=== PATIENT | female | born 1955 | race Caucasian/White ===

== ENCOUNTER 2021-12-31 18:13 | Emergency (ER) | payer OTHER ==
[2021-12-31 18:43] VITALS: BP 152/98; PULSE 78; TEMP 98.4; BMI 28.0
[2021-12-31] MEDS ORDERED: IBUPROFEN 600 MG TABLET (FP) PO ONE ×2 (19:47→19:51)
[2021-12-31] MEDS ORDERED: METHOCARBAMOL 500 MG TABLET PO ONE (19:47)
[2021-12-31] MEDS ORDERED: METHOCARBAMOL 500 MG TABLET ONE (19:52)
== END 2021-12-31 19:57 | disposition home or self-care (01) ==
LOC: FER 18:13
DX: S13.4XXA Sprain of ligaments of cervical spine, initial encounter (principal); X50.0XXA Overexertion from strenuous movement or load, initial encounter; V89.2XXA Person injured in unspecified motor-vehicle accident, traffic, initial encounter
CPT/HCPCS: 99283-25